=== PATIENT | female | born 1970 | race Caucasian/White ===

== ENCOUNTER 2020-08-12 14:12 | Day surgery (SDC) | payer MEDICARE ==
[2020-08-12] MEDS ORDERED: Decadron 4 MG INJ IV ONE (14:13)
[2020-08-12] MEDS ORDERED: LIDOCAINE HCL 2% 100 MG/5 ML IJ ONE (14:13)
[2020-08-12] MEDS ORDERED: DIPRIVAN 200 MG/20 ML IV ONE (15:26)
[2020-08-12] MEDS ORDERED: Lactated Ringers 1,000 ML IV ONE (16:06)
--- NOTE | 2020-08-12 16:24 | XRAY ---
Indication: Right C2-C5 MBB. Intraoperative fluoroscopy provided for 23 seconds. 5 digital spot images submitted for interpretation demonstrates posterior needle tips projecting over the expected right C2-C5 nerve roots. Correlate with intraoperative findings/report.
--- NOTE | 2020-08-12 16:34 | XRAY ---
23 seconds fluoroscopy time in surgery for right C2-C5 MBB.
== END 2020-08-12 15:56 | disposition home or self-care (01) ==
LOC: SDC-PAIN 14:12
PROVIDERS: ATTEND Psychiatry & Neurology Pain Medicine
DX: M47.812 Spondylosis without myelopathy or radiculopathy, cervical region (principal); M19.90 Unspecified osteoarthritis, unspecified site; C50.919 Malignant neoplasm of unspecified site of unspecified female breast; F41.9 Anxiety disorder, unspecified; F32.9 Major depressive disorder, single episode, unspecified; Z79.899 Other long term (current) drug therapy
CPT/HCPCS: 64490; 64491; 64492; 72040; 77002; 84703; J1100; J2704

== ENCOUNTER 2020-11-11 09:54 | Day surgery (SDC) | payer MEDICARE ==
[2020-11-11] MEDS ORDERED: BUPIVACAINE 0.5% VIAL IJ ONE (09:55)
[2020-11-11] MEDS ORDERED: Decadron 4 MG INJ IV ONE (09:55)
[2020-11-11] MEDS ORDERED: Ketamine HCl 50 MG/ML ONE (11:15)
[2020-11-11] MEDS ORDERED: DIPRIVAN 200 MG/20 ML IV ONE (11:15)
[2020-11-11] MEDS ORDERED: Lactated Ringers 1,000 ML IV ONE (15:54)
--- NOTE | 2020-11-12 11:53 | XRAY ---
21 seconds of fluoroscopy was used in surgery for a right C2-C5 MBB.
--- NOTE | 2020-11-14 23:56 | XRAY ---
Indication: Right C2 through C5 MBB. Intraoperative fluoroscopy was provided for 21 seconds. 2 digital spot images submitted for interpretation demonstrate posterior spinal needle tips projected over the expected course of the right C2-C5 nerve roots. Correlate with intraoperative findings/report.
== END 2020-11-11 11:45 | disposition home or self-care (01) ==
LOC: SDC-PAIN 09:54
PROVIDERS: ATTEND Psychiatry & Neurology Pain Medicine
DX: M47.812 Spondylosis without myelopathy or radiculopathy, cervical region (principal); Z79.899 Other long term (current) drug therapy
CPT/HCPCS: 64490; 64491; 64492; 72040; 77002; 84703; J1100; J2704

== ENCOUNTER 2021-01-06 12:49 | Day surgery (SDC) | payer MEDICARE ==
[2021-01-06] MEDS ORDERED: BUPIVACAINE 0.5% VIAL IJ ONE (12:50)
[2021-01-06] MEDS ORDERED: Xylocaine 1% Vial 30 ML PF IJ ONE (12:50)
[2021-01-06] MEDS ORDERED: Decadron 4 MG INJ IV ONE (12:50)
[2021-01-06] MEDS ORDERED: DIPRIVAN 200 MG/20 ML IV ONE (14:35)
--- NOTE | 2021-01-06 16:26 | XRAY ---
Indication: Right C2-C5 RFA. Intraoperative fluoroscopy provided for 46 seconds. 3 digital spot image submitted for interpretation demonstrates posterior needle tips projecting over the expected right C2-C5 S1 nerve roots. Correlate with intraoperative findings/report.
--- NOTE | 2021-01-06 16:31 | XRAY ---
46 seconds of fluoroscopy was used in surgery for a right C2-C5 RFA.
[2021-01-06] MEDS ORDERED: Lactated Ringers 1,000 ML IV ONE (17:29)
== END 2021-01-06 15:11 | disposition home or self-care (01) ==
LOC: SDC-PAIN 12:49
PROVIDERS: ATTEND Psychiatry & Neurology Pain Medicine
DX: M47.812 Spondylosis without myelopathy or radiculopathy, cervical region (principal); Z79.899 Other long term (current) drug therapy
CPT/HCPCS: 64633; 64634; 72040; 77002; J1100; J2001; J2704